=== PATIENT | male | born 1945 | race Caucasian/White ===

== ENCOUNTER → 2023-12-08 10:19 | Outpatient (REF) | payer MEDICARE, OTHER, SELFPAY ==
[2023-12-08 13:44] LABS: Blood Urea Nitrogen 22 mg/dl (9-20)
== END ==
LOC: REG 10:19
PROVIDERS: ATTENDING PHYSICIAN Otolaryngology
DX: H90.A21 Sensorineural hearing loss, unilateral, right ear, with restricted hearing on the contralateral side (principal)
CPT/HCPCS: 36415; 82565; 84520

== ENCOUNTER → 2024-01-30 13:48 | Outpatient (REF) | payer MEDICARE, BC, SELFPAY | LOC: MRI 13:48 | PROVIDERS: ATTENDING PHYSICIAN Otolaryngology; FAMILY PHYSICIAN Family Medicine | DX: H90.A21 Sensorineural hearing loss, unilateral, right ear, with restricted hearing on the contralateral side (principal) | CPT/HCPCS: 70553; 71046; A9575 ==

== ENCOUNTER → 2024-09-13 13:39 | Outpatient (REF) | payer OTHER, BC, SELFPAY ==
[2024-09-13 14:41] LABS: Urine Albumin Negative (Neg - Trace); Urine Bilirubin Negative (Negative); Urine Character Clear (Clear); Urine Color Yellow; Urine Glucose Negative (Negative); Urine Ketone Negative (Negative); Urine Leukocyte Trace (Negative); Urine Nitrite Negative (Negative); Urine Occult Blood Negative (Negative); Urine Urobilinogen Negative (Neg - 1+); Urine pH 6.5 (5.0-9.0)
[2024-09-13 16:36] LABS: Urine Red Blood Cell 0-2 /HPF (0-2); Urine White Cell 0-2 /HPF (0-5)
== END ==
LOC: REG 13:39
PROVIDERS: ATTENDING PHYSICIAN Specialist; FAMILY PHYSICIAN Family Medicine
DX: C67.2 Malignant neoplasm of lateral wall of bladder (principal)
CPT/HCPCS: 81003; 81015; 87086

== ENCOUNTER → 2024-10-03 11:48 | Outpatient (REF) | payer MEDICARE, BC, SELFPAY | LOC: SDSPAT 11:48 | PROVIDERS: ATTENDING PHYSICIAN Surgery; FAMILY PHYSICIAN Family Medicine | DX: K40.20 Bilateral inguinal hernia, without obstruction or gangrene, not specified as recurrent (principal) | CPT/HCPCS: 36415; 93005 ==

== ENCOUNTER 2024-10-15 06:18 | Day surgery (SDC) | payer MEDICARE, BC, SELFPAY ==
[2024-10-03 13:42] VITALS: BMI 27.6
[2024-10-15] VITALS (10 sets, daily range): BP systolic 98–130; BP diastolic 33–82; BMI 27.6
[2024-10-15] MEDS: HEPARIN 5000 UNITS SC (09:21)
[2024-10-15] MEDS: TYLENOL 1000 MG PO (09:21)
[2024-10-15] MEDS: NORMOSOL-R/PLASMALYTE-A 1000 IV (09:28)
--- NOTE | 2024-10-15 11:57 | OR.RPT ---
Operative Report
Operative Report
Primary Surgeon: Kenn
Assisting: Homar PEDRO
Pre-op Diagnosis: Bilateral inguinal hernias
Post-op Diagnosis: Same
Procedure Performed: Robot assisted repair of bilateral inguinal hernias
Anesthesia Type: GETA
Specimen / Cultures: None
Estimated Blood Loss: 10cc
Complications: None immediate
Operative Findings: Bilateral indirect defects, bilateral moderate cord lipomas, bilateral fatty cords, B/L MID 3D Max
Date of surgery: 10/15/24
Indications:� This 79M developed symptomatic bilateral inguinal hernias. Robot assisted laparoscopic repair of bilateral inguinal hernias was planned.
Description of procedure:� The patient was taken to the operating room and positioned into supine position. The patient�s abdomen was prepped and draped in standard sterile fashion. A time-out was completed verifying correct patient, procedure,
site, positioning, and implants and special equipment prior to beginning this procedure.
A stab incision was made in the left upper quadrant, a Veress needle was inserted and proper position was confirmed by aspiration and saline drop test. Following this, pneumoperitoneum was created with insufflation of carbon dioxide to 12 mmHg. Then
a 8mm robotic trocar was inserted above and to the left of the umbilicus. A laparoscope was inserted and the area of initial trocar entry and Veress needle placement were both inspected and no injuries were found. Two 8mm trocars were then placed
lateral to the rectus sheath under direct visualization.
Both inguinal regions were inspected and the median umbilical ligament, medial umbilical ligament, and lateral umbilical fold were identified. Attention was turned to the right groin. The peritoneum was incised transversely above the defect and a
flap was developed in the caudad direction. Sam�s ligament was identified ultimately dissected to its junction with the iliac vein and the space of Retzius was developed bluntly.� The dissection was continued inferiorly to the iliopubic tract,
with care taken to avoid injury to the femoral branch of the genitofemoral nerve and the lateral femoral cutaneous nerve. The cord structures were parietalized.
The direct space was inspected and no hernia defect was identified. The femoral space was inspected no defect was identified. The indirect space was inspected and a hernia was identified and reduced by gentle traction. The canal was inspected and a
moderate cord lipoma was identified and reduced by gentle traction. The cord was fatty.
Attention was turned to the left groin and the above process as repeated with similar findings.
Extra large left and right MID 3D max mesh was passed through a trocar. The mesh was placed into the preperitoneal space and moved into position to lay flat and completely cover the direct, indirect, and femoral spaces with overlap at the midline.
The mesh was secured into place using 2-0 vicryl suture to Sam�s ligament medially and laterally. Care was taken to avoid the inferolateral triangles containing the iliac vessels and genital nerves. The peritoneal flap was closed over the mesh
and secured with 2-0 monocryl stratafix suture in similar positions of safety. A 14g angiocath was used to decompress the preperitoneal space revealing good seal and all mesh in good position without folding or curling.
After ensuring adequate hemostasis, the trocars were removed and the pneumoperitoneum allowed to escape. The trocar incisions were closed at the skin level using 4-0 monocryl and topical skin adhesive. All counts were correct and the patient
tolerated the procedure well and was taken to the postanesthesia care unit in stable condition.
The assistance of Homar PEDRO was required due to the complexity of the procedure. During the procedure she assisted with retraction, resection, and closure of the wound.
== END 2024-10-15 13:50 | disposition home or self-care (01) ==
LOC: SDS 06:18
PROVIDERS: ATTENDING PHYSICIAN Surgery; FAMILY PHYSICIAN Family Medicine
DX: K40.20 Bilateral inguinal hernia, without obstruction or gangrene, not specified as recurrent (principal)
CPT/HCPCS: 49650; C1781

== ENCOUNTER → 2025-03-11 13:23 | Outpatient (REF) | payer MEDICARE, BC, SELFPAY ==
[2025-03-11 14:27] LABS: Hematocrit 41.9 % (39.0-52.0); Hemoglobin 14.0 g/dL (13.0-18.0); Mean Corp Hgb Conc. 33.4 g/dL (33.0-37.0); Mean Corpuscular Volume 93.7 fL (80.0-94.0); Nucleated Red Blood Cells % 0 % (-); Platelet Count 226 10^3/uL (130-400); Red Cell Dist. Width 13.2 % (11.5-14.5)
[2025-03-11 14:52] LABS: ALT (SGPT) 14 U/L (0-50); AST (SGOT) 19 U/L (17-59); Albumin 4.4 g/dl (3.5-5.0); Alkaline Phosphatase 61 U/L (38-126); Blood Urea Nitrogen 19 mg/dl (9-20); Calcium 9.2 mg/dl (8.4-10.2); Carbon Dioxide 29 mmol/L (22-30); Chloride 104 mmol/L (98-107); Glucose 169 mg/dl (70-99); HDL Cholesterol 53 mg/dl; LDL Cholesterol, Calculated 93 mg/dl; Potassium 4.4 mmol/L (3.5-5.1); Sodium 139 mmol/L (135-145); Total Protein 6.6 g/dl (6.3-8.2); Very Low Density Lipoprotein 24 mg/dl (0-30); eGFR > 60.00
[2025-03-11 15:58] LABS: Folate 11.0 ng/ml (2.76-20); Vitamin B12 831 pg/ml (239-931)
[2025-03-12 10:03] LABS: Glycohemoglobin (HgbA1c) 5.9 % (4.0-5.6)
[2025-03-12 14:19] LABS: Syphilis/T. pallidum Ab Reflex Negative (Negative)
[2025-03-15 06:52] LABS: Vitamin B1, Whole Blood 110 nmol/L (70-180)
== END ==
LOC: REG 13:23
PROVIDERS: ATTENDING PHYSICIAN Student in an Organized Health Care Education/Training Program
DX: F03.A0 Unspecified dementia, mild, without behavioral disturbance, psychotic disturbance, mood disturbance, and anxiety (principal)
CPT/HCPCS: 36415; 80053; 80061; 82607; 82652; 82746; 83036; 83921; 84425; 84443; 85025; 86780; 87389